=== PATIENT | male | born 1955 | race Caucasian/White ===

== ENCOUNTER 2020-11-21 03:54 | Observation (INO) ==
[2020-11-21] MEDS ORDERED: ONDANSETRON 4 MG/2 ML VIAL IV PRN (06:14)
[2020-11-21] MEDS ORDERED: ACETAMINOPHEN 325 MG TABLET PO PRN (06:14)
[2020-11-21] MEDS ORDERED: GLUCAGON 1 MG VIAL IM PRN (06:14)
[2020-11-21] MEDS ORDERED: MORPHINE 2 MG/1 ML SYRINGE IV PRN (06:14)
[2020-11-21] MEDS ORDERED: hydrALAZINE 20 MG/1 ML VIAL IV PRN (06:14)
[2020-11-21] MEDS ORDERED: DEXTROSE 50% 25 GM/50 ML VIAL IV PRN (06:14)
[2020-11-21 06:41] LABS: Basophils # 0.1 10*3/uL (0.0-0.2); Basophils % 0.9 % (0.0-0.8); Eosinophils # 0.4 10*3/uL (0.0-0.87); Eosinophils % 5.5 % (0.00-10.9); Hematocrit 40.9 VOL% (42.0-52.0); Hemoglobin 13.2 GM/DL (14.0-18.0); Immature Granulocytes % 0.3 %; Immature Granulocytes Absolute 0.02 #; Lymphocytes # 2.4 10*3/uL (1.4-4.0); Lymphocytes % 34.5 % (21.2-54.2); Mean Corpuscular HGB Conc 32.3 GM/DL (32-36); Mean Corpuscular Volume 89.9 FL (87-102); Mean Platelet Volume 9.1 FL (9.6-12.0); Neutrophils % 46.8 % (38.7-73.9); Platelet Count 241 T/CUMM (130-400); Red Blood Count 4.55 MC/CUMM (3.8-5.5); Red Cell Distribution Width 12.7 % (9.3-17.3); White Blood Count 6.9 T/CUMM (4-12)
[2020-11-21 07:03] LABS: Albumin 3.2 G/DL (3.4-5.0); Bilirubin,Total 0.4 MG/DL (0.20-1.00); Calcium 8.3 MG/DL (8.5-10.1); Osmolality,Calculated 284.1 MOS/KG (273-304); Total Protein 6.9 G/DL (6.4-8.2)
[2020-11-21 07:30] LABS: Risk Ratio 5.41; VLDL Cholesterol 31.2 MG/DL
[2020-11-21] MEDS ORDERED: ASPIRIN EC 81 MG TABLET PO SCH (09:00)
[2020-11-21] MEDS ORDERED: VALSARTAN 80 MG TABLET PO SCH (09:00)
[2020-11-21] MEDS ORDERED: PANTOPRAZOLE 40 MG TABLET PO SCH (09:00)
[2020-11-21] MEDS ORDERED: ASPIRIN EC 325 MG TABLET PO SCH (09:00)
[2020-11-21] MEDS ORDERED: carvediloL 6.25 MG TABLET PO SCH (09:00)
[2020-11-21] MEDS ORDERED: ROSUVASTATIN 20 MG TABLET PO SCH (09:00)
[2020-11-21] MEDS ORDERED: CHLORTHALIDONE 25 MG TABLET PO SCH (11:00)
[2020-11-21 11:44] VITALS: BP 126/73
[2020-11-21] MEDS ORDERED: ENOXAPARIN 100 MG/ML SYRINGE SUBCUT SCH (14:00)
== END 2020-11-21 16:04 | disposition home or self-care (01) ==
LOC: N.TELEN → SUATTDRO 05:08
PROVIDERS: ADMIT Internal Medicine; ATTEND Internal Medicine

== ENCOUNTER 2020-11-23 01:14 | Inpatient (IN) ==
[2020-11-23 02:32] LABS: Basophils # 0.1 10*3/uL (0.0-0.2); Basophils % 0.5 % (0.0-0.8); Eosinophils # 0.3 10*3/uL (0.0-0.87); Eosinophils % 2.5 % (0.00-10.9); Hematocrit 40.7 VOL% (42.0-52.0); Hemoglobin 13.3 GM/DL (14.0-18.0); Immature Granulocytes % 0.3 %; Immature Granulocytes Absolute 0.04 #; Lymphocytes # 1.7 10*3/uL (1.4-4.0); Lymphocytes % 14.3 % (21.2-54.2); Mean Corpuscular HGB Conc 32.7 GM/DL (32-36); Mean Corpuscular Volume 89.5 FL (87-102); Mean Platelet Volume 9.6 FL (9.6-12.0); Monocytes % 7.2 % (1.7-12.7); Neutrophils % 75.2 % (38.7-73.9); Platelet Count 263 T/CUMM (130-400); Red Blood Count 4.55 MC/CUMM (3.8-5.5); Red Cell Distribution Width 12.9 % (9.3-17.3); White Blood Count 11.6 T/CUMM (4-12)
[2020-11-23 02:47] LABS: Albumin 3.6 G/DL (3.4-5.0); Bilirubin,Total 0.4 MG/DL (0.20-1.00); Calcium 8.4 MG/DL (8.5-10.1); Potassium 3.8 MMOL/L (3.5-5.1); Total Protein 7.4 G/DL (6.4-8.2)
[2020-11-23] MEDS ORDERED: DEXTROSE 50% 25 GM/50 ML VIAL IV PRN (03:09)
[2020-11-23] MEDS ORDERED: GLUCAGON 1 MG VIAL IM PRN (03:09)
[2020-11-23] MEDS ORDERED: hydrALAZINE 20 MG/1 ML VIAL IV PRN (03:11)
[2020-11-23] MEDS ORDERED: ASPIRIN 325 MG TABLET PO STA (03:11)
[2020-11-23] MEDS ORDERED: ONDANSETRON 4 MG/2 ML VIAL IV PRN (03:11)
[2020-11-23] MEDS ORDERED: MORPHINE 2 MG/1 ML SYRINGE IV PRN (03:21)
[2020-11-23] MEDS ORDERED: ENOXAPARIN 100 MG/ML SYRINGE SUBCUT SCH (04:00)
[2020-11-23] MEDS ORDERED: NITROGLYCERIN 2% OINT 1 INCH/GM PACK TOP SCH (04:00)
[2020-11-23] MEDS ORDERED: ENOXAPARIN 30 MG/0.3 ML SYRINGE SUBCUT STA (04:40)
[2020-11-23] MEDS ORDERED: TICAGRELOR 90 MG TABLET PO STA (04:47)
[2020-11-23 07:37] LABS: CKMB % 9.6 %
[2020-11-23 07:40] LABS: High Sensitive Troponin I* 4386.6 ng/L (0-78)
[2020-11-23] MEDS ORDERED: POTASSIUM CHLORIDE RIDER 10 MEQ/100 ML PREMIX IV PRN (07:44)
[2020-11-23] MEDS ORDERED: diphenhydrAMINE CAP 50 MG CAPSULE PO ONE (07:44)
[2020-11-23] MEDS ORDERED: DIAZEPAM 5 MG TABLET PO ONE (07:44)
[2020-11-23] MEDS ORDERED: MAGNESIUM SULF RIDER 2 GM/50 ML PREMIX IV PRN (07:44)
[2020-11-23] MEDS ORDERED: SODIUM CHLORIDE 0.45% 1,000 ML IV SCH (08:00)
[2020-11-23] MEDS ORDERED: LIDOCAINE 1%/EPI INJ 20 ML VIAL ONE (08:14)
[2020-11-23] MEDS ORDERED: HEPARIN/NACL 0.9% 2 UNITS/ML 2,000 UNIT/1,000 ML BAG IV ONE (08:14)
[2020-11-23] MEDS ORDERED: MIDAZOLAM 2 MG/2 ML VIAL ONE (08:24)
[2020-11-23] MEDS ORDERED: fentaNYL 100 MCG/2 ML VIAL ONE (08:24)
[2020-11-23] MEDS ORDERED: ENOXAPARIN 60 MG/0.6 ML SYRINGE ONE (08:54)
[2020-11-23] MEDS ORDERED: TIROFIBAN 5,000 MCG/100 ML PREMIX IV ONE (08:55)
[2020-11-23] MEDS ORDERED: ROSUVASTATIN 20 MG TABLET PO SCH (09:00)
[2020-11-23] MEDS ORDERED: carvediloL 6.25 MG TABLET PO SCH (09:00)
[2020-11-23] MEDS ORDERED: NITROGLYCERIN DRIP 50 MG/250 ML BOTTLE IV ONE (09:04)
[2020-11-23] MEDS: METOPROLOL TARTRATE 25 MG TABLET PO SCH ×2 (15:24→21:25)
[2020-11-23] MEDS: CHLORTHALIDONE 25 MG TABLET PO SCH (15:24)
[2020-11-24 05:00] LABS: Basophils # 0.1 10*3/uL (0.0-0.2); Basophils % 0.6 % (0.0-0.8); Eosinophils # 0.5 10*3/uL (0.0-0.87); Eosinophils % 4.9 % (0.00-10.9); Hematocrit 42.1 VOL% (42.0-52.0); Immature Granulocytes % 0.3 %; Immature Granulocytes Absolute 0.03 #; Lymphocytes % 19.8 % (21.2-54.2); Mean Corpuscular HGB Conc 33.3 GM/DL (32-36); Mean Platelet Volume 9.5 FL (9.6-12.0); Neutrophils % 61.4 % (38.7-73.9); Platelet Count 252 T/CUMM (130-400); Red Blood Count 4.73 MC/CUMM (3.8-5.5); Red Cell Distribution Width 12.8 % (9.3-17.3); White Blood Count 9.9 T/CUMM (4-12)
[2020-11-24 05:14] LABS: Calcium 8.6 MG/DL (8.5-10.1); Osmolality,Calculated 278.5 MOS/KG (273-304); Potassium 3.8 MMOL/L (3.5-5.1)
[2020-11-24] MEDS: TICAGRELOR 90 MG TABLET PO SCH ×3 (06:07→21:41)
[2020-11-24] MEDS ORDERED: ASPIRIN 325 MG TABLET PO SCH (09:00)
[2020-11-24] MEDS: ROSUVASTATIN 20 MG TABLET PO SCH (09:45)
[2020-11-24] MEDS: PANTOPRAZOLE 40 MG TABLET PO SCH (09:46)
[2020-11-24] MEDS: CHLORTHALIDONE 25 MG TABLET PO SCH ×2 (09:46→09:55)
[2020-11-24] MEDS: ASPIRIN EC 81 MG TABLET PO SCH (09:46)
[2020-11-24] MEDS: METOPROLOL TARTRATE 25 MG TABLET PO SCH ×2 (09:46→21:41)
[2020-11-25 08:09] LABS: Basophils # 0.1 10*3/uL (0.0-0.2); Basophils % 0.7 % (0.0-0.8); Eosinophils # 0.5 10*3/uL (0.0-0.87); Eosinophils % 5.7 % (0.00-10.9); Hematocrit 43.9 VOL% (42.0-52.0); Immature Granulocytes % 0.5 %; Immature Granulocytes Absolute 0.04 #; Lymphocytes # 1.9 10*3/uL (1.4-4.0); Lymphocytes % 23.9 % (21.2-54.2); Mean Corpuscular HGB Conc 34.2 GM/DL (32-36); Mean Corpuscular Volume 88.2 FL (87-102); Mean Platelet Volume 9.4 FL (9.6-12.0); Monocytes % 12.4 % (1.7-12.7); Neutrophils % 56.8 % (38.7-73.9); Platelet Count 244 T/CUMM (130-400); Red Blood Count 4.98 MC/CUMM (3.8-5.5); Red Cell Distribution Width 12.8 % (9.3-17.3); White Blood Count 8.1 T/CUMM (4-12)
[2020-11-25 08:29] LABS: Calcium 8.5 MG/DL (8.5-10.1); Osmolality,Calculated 280.4 MOS/KG (273-304); Potassium 4.1 MMOL/L (3.5-5.1)
[2020-11-25] MEDS: ASPIRIN EC 81 MG TABLET PO SCH (09:25)
[2020-11-25] MEDS: TICAGRELOR 90 MG TABLET PO SCH (09:26)
[2020-11-25] MEDS: PANTOPRAZOLE 40 MG TABLET PO SCH (09:26)
[2020-11-25] MEDS: ROSUVASTATIN 20 MG TABLET PO SCH (09:26)
[2020-11-25] MEDS: METOPROLOL TARTRATE 25 MG TABLET PO SCH (14:04)
[2020-11-25] MEDS: CHLORTHALIDONE 25 MG TABLET PO SCH (14:04)
[2020-11-25 17:38] VITALS: BP 110/70
== END 2020-11-25 16:24 | disposition home or self-care (01) | DRG 247 ==
LOC: EDUNIT# → EDBD → N.ED 01:14 → N.EDINP 01:14 → N.TELEN 06:41
PROVIDERS: ADMIT Internal Medicine; ATTEND Internal Medicine
PROC: CLCCHCL (ICD-10-PCS; 2020-11-23 08:45)